=== PATIENT | male | born 1990 | race Caucasian/White ===

== ENCOUNTER 2019-01-11 22:02 | Emergency (ER) | payer OTHER ==
[~2019-01-11] VITALS: Ht 170.2 cm; Wt 59.0 kg
[~2019-01-11 22:02] MED LIST: ALBU17AE26 INH
[2019-01-11 22:08] VITALS: BP_SYST 116
--- NOTE | 2019-01-11 22:12 | NUR ---
Patient triaged and placed in waiting room. VSS and patient appears in no acute distress at this time. Accompanied by family, awaiting available bed, and MD notified of need for MSE.
[2019-01-11 23:06] LABS: BARBITURATE, URINE NEGATIVE (NEG <=200); BENZODIAZEPINE, URINE NEGATIVE (NEG <=150); CANNABINOID, URINE NEGATIVE (NEG <=50); COCAINE, URINE NEGATIVE (NEG <=150); METHAMPHETAMINES SCREEN,URINE NEGATIVE (NEG <=500); OPIATE, URINE NEGATIVE (NEG <=100); PHENCYCLIDINE SCREEN,URINE NEGATIVE (NEG <=25); UR TRICYCLIC ANTIDEPRESSANTS NEGATIVE (NEG <=300); URINE AMPHETAMINE NEGATIVE (NEG <=500); URINE METHADONE NEGATIVE (NEG <=200); URINE OXYCODONE SCREEN NEGATIVE (NEG <=100); URINE PROPOXYPHENE SCREEN NEGATIVE (NEG <=300)
--- NOTE | 2019-01-12 00:13 | NUR ---
Patient left without being seen.
== END 2019-01-12 00:13 | disposition left against medical advice (07) ==
LOC: SED 22:02
DX: T40.4X1A Poisoning by other synthetic narcotics, accidental (unintentional), initial encounter (principal); Z53.21 Procedure and treatment not carried out due to patient leaving prior to being seen by health care provider; Y92.89 Other specified places as the place of occurrence of the external cause
CPT/HCPCS: 80307; 99281

== ENCOUNTER 2019-12-28 12:25 | Emergency (ER) | payer MEDICAID, OTHER ==
[~2019-12-28] VITALS: Ht 170.2 cm; Wt 54.4 kg
[2019-12-28 12:28] VITALS: BP_SYST 118
--- NOTE | 2019-12-28 12:29 | NUR ---
Patient to ER bed 4 to gown for evaluation. Side rails up. Report given to BETI CLYA.
--- NOTE | 2019-12-28 12:30 | NUR ---
Pt walked in to ER with c/o scrotal pain x2 days and reports hematuria this morning. V/S stable, pt is afebrile. Currently resting in bed, will continue to monitor.
--- NOTE | 2019-12-28 12:37 | NUR ---
CYRUS Umana at bedside examining patient.
[2019-12-28] MEDS ORDERED: KETOROLAC TROMETHAMINE 30 MG VIAL IM ONE (12:45)
--- NOTE | 2019-12-28 12:49 | NUR ---
Patient transported to radiology, ambulatory, accompanied by staff.
[2019-12-28 13:28] LABS: BILIRUBIN,URINE NEGATIVE (NEGATIVE); BLOOD, URINE 1+ (NEGATIVE); CLARITY/URINE CLEAR (CLEAR); COLOR,URINE YELLOW (YELLOW); GLUCOSE,URINE NEGATIVE (NEGATIVE); KETONES,URINE NEGATIVE (NEGATIVE); LEUKOCYTE ESTERASE ,URINE NEGATIVE (NEGATIVE); NITRITE, URINE NEGATIVE (NEGATIVE); PROTEIN URINE TRACE (NEGATIVE); UROBILINOGEN,URINE 0.2 (0.2-1.0)
[2019-12-28] MEDS ORDERED: LACTULOSE 20 GM/30 ML UDC PO ONE (13:30)
[2019-12-28 13:36] LABS: BACTERIA,URINE None Seen /HPF (None Seen); WBC,URINE NONE SEEN /HPF (0-3)
--- NOTE | 2019-12-28 13:50 | NUR ---
Patient given written and verbal discharge instructions and verbalizes understanding. ER MD discussed with patient the results and treatment provided. Patient in stable condition. ID arm band removed. Rx of Lactulose given. Patient educated on pain management and to follow up with PMD. Pain Scale 0. Opportunity for questions provided and answered. Medication side effect fact sheet provided.
[2019-12-28 14:08] VITALS: BP_SYST 118
[2019-12-30 18:21] LABS: CHLAMYDIA TRACHOMATIS NAA Negative (Negative); NEISSERIA GONORRHOEAE NAA Negative (Negative)
== END 2019-12-28 14:08 | disposition home or self-care (01) ==
LOC: SED 12:25
DX: K59.00 Constipation, unspecified (principal); R30.0 Dysuria; J45.909 Unspecified asthma, uncomplicated
CPT/HCPCS: 74176; 81000; 87491; 87591; 96372; 99284; J1885

== ENCOUNTER 2019-12-30 19:42 | Emergency (ER) | payer MEDICAID ==
[~2019-12-30] VITALS: Ht 170.2 cm; Wt 54.4 kg
[2019-12-30 19:50] VITALS: BP_SYST 116
--- NOTE | 2019-12-30 19:50 | NUR ---
Pt ambulatory to bed 6 for evaluation
--- NOTE | 2019-12-30 20:00 | NUR ---
PT A&O X4 C/O OF NAUSEA, VOMITING X100 TIMES A DAY FOR PAST TWO DAYS AND CONSTIPATION. PT LAST BOWEL MOVEMENT WAS THREE DAYS AGO. PT C/O OF LOWER ABDOMINAL PAIN 8/10 CONSTANT ACHING THROBBING. PT DENIES BLOOD IN EMESIS. PT DENIES PROBLEMS URINATING. PT UNABLE TO KEEP FLUIDS AND FOOD DOWN.
--- NOTE | 2019-12-30 20:06 | NUR ---
CYRUS ANTONY at bedside examining patient.
[2019-12-30] MEDS: ONDANSETRON 4 MG ODT TAB PO ONE (20:14)
--- NOTE | 2019-12-30 20:25 | NUR ---
xray at bedside.
--- NOTE | 2019-12-30 21:45 | NUR ---
tap water enema initiated, first 500ml administered. pt instructed and educated on procedure. bedside commode and cleansing wipes placed at bedside for patient.
--- NOTE | 2019-12-30 22:00 | NUR ---
pt had a loose watery muddy bowel movement in bedside commode. visualized small chunks of feces.
--- NOTE | 2019-12-30 22:10 | NUR ---
tap water enema completed, second 500ml administered. pt instructed and educated on procedure. bedside commode and cleansing wipes placed at bedside for patient.
[2019-12-30] MEDS: MAGNESIUM CITRATE 300 ML ORAL SOLUTION PO ONE (22:18)
--- NOTE | 2019-12-30 22:44 | NUR ---
pt able to have second bowel movement, loose stool. pt states he is feeling better.
[2019-12-30 23:20] VITALS: BP_SYST 125
--- NOTE | 2019-12-30 23:20 | NUR ---
Patient given written and verbal discharge instructions and verbalizes understanding. ER MD discussed with patient the results and treatment provided. Patient in stable condition. ID arm band removed. Rx of miralax given. Patient educated on pain management and to follow up with PMD. Pain Scale 3/10. Opportunity for questions provided and answered. Medication side effect fact sheet provided.
== END 2019-12-30 23:20 | disposition home or self-care (01) ==
LOC: SED 19:42
DX: K59.00 Constipation, unspecified (principal); J45.909 Unspecified asthma, uncomplicated
CPT/HCPCS: 74018; 99283; Q0162

== ENCOUNTER 2020-10-31 00:32 | Emergency (ER) | payer MEDICAID ==
[~2020-10-31] VITALS: Ht 172.7 cm; Wt 54.4 kg
[2020-10-31 00:35] VITALS: BP_SYST 124
[2020-10-31 01:33] LABS: ANION GAP 8 (5-15); CALCIUM 8.8 mg/dL (8.4-11.0); CHLORIDE 102 mmol/L (98-107); CREATININE 1.57 mg/dL (0.55-1.30); GLUCOSE 135 mg/dL (70-99); POTASSIUM 4.2 mmol/L (3.5-5.1); SODIUM SERUM 141 mmol/L (136-145); UREA NITROGEN, BLOOD 14 mg/dL (8-21)
[2020-10-31 01:46] LABS: ALANINE AMINOTRANSFERASE 81 U/L (12-78); ALBUMIN 4.2 g/dL (3.4-4.8); ASPARTATE AMINOTRANSFERASE 13 U/L (10-37); GFR AFRICAN AMERICAN 67 mL/min (>90); TOTAL BILIRUBIN 0.2 mg/dL (0.0-1.0)
[2020-10-31 01:47] LABS: ACETAMINOPHEN < 1 ug/mL (1-30); ALCOHOL, BLOOD < 3 mg/dL (<10)
[2020-10-31 02:02] LABS: BARBITURATE, URINE NEGATIVE (NEG <=200); BENZODIAZEPINE, URINE NEGATIVE (NEG <=150); CANNABINOID, URINE NEGATIVE (NEG <=50); COCAINE, URINE NEGATIVE (NEG <=150); METHAMPHETAMINES SCREEN,URINE NEGATIVE (NEG <=500); OPIATE, URINE NEGATIVE (NEG <=100); PHENCYCLIDINE SCREEN,URINE NEGATIVE (NEG <=25); UR TRICYCLIC ANTIDEPRESSANTS NEGATIVE (NEG <=300); URINE AMPHETAMINE POSITIVE (NEG <=500); URINE METHADONE NEGATIVE (NEG <=200); URINE OXYCODONE SCREEN NEGATIVE (NEG <=100); URINE PROPOXYPHENE SCREEN NEGATIVE (NEG <=300)
[2020-10-31] MEDS ORDERED: NACL 0.9% 1,000 ML IV ONE (05:15)
[2020-10-31 06:47] VITALS: BP_SYST 164
[2020-10-31] MEDS ORDERED: SERT25TA PO (06:54)
[2020-10-31] MEDS ORDERED: SERT25TA77 PO (06:54)
[2020-10-31 07:06] LABS: BASOPHILS # (AUTO) 0.1 K/uL (0.0-0.2); BASOPHILS % (AUTO) 0.6 % (0.0-2.0); EOSINOPHILS # (AUTO) 0.1 K/uL (0.0-0.4); EOSINOPHILS % (AUTO) 0.5 % (0.0-4.0); HEMATOCRIT 45.6 % (36-54); HEMOGLOBIN 15.2 g/dL (14.0-18.0); LYMPHOCYTES # (AUTO) 1.4 K/uL (1.0-5.5); LYMPHOCYTES % (AUTO) 11.6 % (20.5-51.5); MEAN CORPUSCULAR HEMOGLOBIN 31 pg (27-31); MEAN CORPUSCULAR HGB CONC 33 % (32-36); MEAN CORPUSCULAR VOLUME 91 fL (79.0-98.0); MONOCYTES # (AUTO) 0.7 K/uL (0.0-1.0); MONOCYTES % (AUTO) 5.6 % (1.7-9.3); NEUTROPHILS # (AUTO) 9.7 K/uL (1.8-7.7); NEUTROPHILS % (AUTO) 81.7 % (40.0-70.0); PLATELET COUNT (AUTO) 326 K/uL (130-430); RED BLOOD CELL COUNT(AUTO) 4.99 MIL/uL (4.2-6.2); RED CELL DISTRIBUTION WIDTH 13.3 % (9.0-15.0); WHITE BLOOD COUNT (AUTO) 11.8 K/uL (4.8-10.8)
== END 2020-10-31 07:30 | disposition left against medical advice (07) ==
LOC: SED 00:32
DX: T40.411A Poisoning by fentanyl or fentanyl analogs, accidental (unintentional), initial encounter (principal); N17.9 Acute kidney failure, unspecified; Z79.899 Other long term (current) drug therapy; Z20.822 Contact with and (suspected) exposure to COVID-19; Y92.89 Other specified places as the place of occurrence of the external cause
CPT/HCPCS: 36415; 80048; 80053; 80307; 82550; 85025; 87426; 93005; 96360; 99284; G0480; J7030; G0481; G0482